=== PATIENT | male | born 1980 | race Caucasian/White ===

== ENCOUNTER 2024-01-08 13:03 | Emergency (ER) | payer SELFPAY ==
[~2024-01-08] VITALS: Ht 175.3 cm; Wt 80.8 kg
[2024-01-08] MEDS ORDERED: NABU-72 PO (14:44)
[2024-01-08] MEDS ORDERED: AUG875T PO (14:44)
[2024-01-08 17:00] VITALS: BP 130/89; PULSE 82; RESP 17; TEMP 97.9; O2SAT 99
== END 2024-01-08 16:58 | disposition home or self-care (01) ==
LOC: ER 13:03
DX: S61.227A Laceration with foreign body of left little finger without damage to nail, initial encounter (principal); S61.257A Open bite of left little finger without damage to nail, initial encounter; Z79.2 Long term (current) use of antibiotics; Z79.899 Other long term (current) drug therapy; W54.0XXA Bitten by dog, initial encounter; Y93.89 Activity, other specified; Y92.89 Other specified places as the place of occurrence of the external cause; Y99.8 Other external cause status